=== PATIENT | female | born 1985 | race African-American/Black ===

== ENCOUNTER 2016-12-10 | Inpatient (IN) | payer MEDICAID, OTHER ==
[~2016-12-10] VITALS: Ht 167.6 cm; Wt 79.8 kg
[~2016-12-10] MED LIST: PREN-88 PO
[2016-12-10] MEDS ORDERED: CARBOPROST TROMETHAMINE 250 MCG/ML AMPUL IM PRN (03:00)
[2016-12-10] MEDS ORDERED: METHYLERGONOVINE MALEATE 0.2 MG/ML IM PRN (03:00)
[2016-12-10] MEDS ORDERED: MISOPROSTOL 100MCG TABLET VG SCH (03:00)
[2016-12-10] MEDS ORDERED: BUTORPHANOL TARTRATE 2 MG/ML VIAL IV PRN (03:00)
[2016-12-10] MEDS ORDERED: LIDOCAINE HCL 1% 20ML VIAL (Pyxis) INJ INFIL SCH (03:00)
[2016-12-10] MEDS ORDERED: NALOXONE HCL 0.4 MG/ML 1ML VIAL IM PRN (03:00)
[2016-12-10] MEDS: LACTATED RINGERS 1,000 ML IV SCH ×3 (04:50→11:27)
[2016-12-10 04:59] LABS: CLARITY URINE CLEAR (CLEAR); COLOR URINE DARK YELLOW (YELLOW); GLUCOSE URINE NEGATIVE (NEGATIVE); KETONES URINE TRACE (NEGATIVE); LEUKOCYTE ESTERASE URINE 1+ (NEGATIVE); NITRITE URINE NEGATIVE (NEGATIVE); OCCULT BLOOD URINE 2+ (NEGATIVE); PROTEIN URINE TRACE (NEGATIVE); SPECIFIC GRAVITY URINE 1.028 (1.005-1.030)
[2016-12-10 05:08] LABS: BASOPHILS % 0.3 % (0.0-2.0); EOSINOPHILS % 2.5 % (0.0-5.0); HEMATOCRIT. 30.3 % (36.0-48.0); HEMOGLOBIN. 10.2 g/dL (12.0-16.0); LYMPHOCYTES % 18.8 % (20.0-50.0); MEAN CORPUSCULAR HEMOGLOBIN 27.6 pg (28.0-32.0); MEAN CORPUSCULAR VOLUME 81.9 fL (81.0-99.0); MEAN PLATELET VOLUME 10.2 fl (7.4-10.4); MONOCYTES % 9.5 % (2.0-8.0); NEUTROPHILS % 68.9 % (40.0-76.0); PLATELET 197 x1000/uL (130-400); RED CELL DISTRIBUTION WIDTH 13.6 % (11.6-14.6)
[2016-12-10 05:08] LABS: *AMPHETAMINES SCREEN URINE NEGATIVE (NEGATIVE); *BARBITURATES SCREEN URINE NEGATIVE (NEGATIVE); *BENZODIAZEPINES SCREEN URINE NEGATIVE (NEGATIVE); *COCAINE SCREEN URINE NEGATIVE (NEGATIVE); CANNABINOID URINE SCREEN NEGATIVE (NEGATIVE); METHADONE URINE SCREEN NEGATIVE (NEGATIVE); OPIATES URINE SCREEN NEGATIVE (NEGATIVE); PHENCYCLIDINE URINE SCREEN NEGATIVE (NEGATIVE)
[2016-12-10] MEDS: DEXT 5%/LR + PITOCIN 20UNITS/L 1,000 ML IV SCH ×2 (05:10→14:10)
[2016-12-10 05:23] LABS: INR 0.9; PARTIAL THROMBOPLASTIN TIME 28.2 sec (24.0-34.0); PROTHROMBIN TIME 9.9 sec
[2016-12-10 07:54] LABS: HEPATITIS B SURFACE ANTIGEN NEGATIVE; RUBELLA IGG 50.3 IU/mL (4.99-10)
[2016-12-10] MEDS ORDERED: BUPIVACAINE HCL/PF 0.25% (2.5MG/ML) 10ML ONE (10:59)
[2016-12-10] MEDS ORDERED: FENTANYL CITRATE/PF 50MCG/ML 2ML VIAL ONE (10:59)
[2016-12-10] MEDS ORDERED: BUPIVACAINE HCL/NS/PF EPIDURAL 100 ML EP SCH (11:00)
[2016-12-10] MEDS ORDERED: DEXT 5%/LR + PITOCIN 20UNITS/L 1,000 ML IV SCH (12:57)
[2016-12-10] MEDS ORDERED: ACETAMINOPHEN WITH CODEINE 300/30MG TABLET PO PRN (13:00)
[2016-12-10] MEDS ORDERED: BENZOCAINE/LANOLIN/ALOE VERA SPRAY TOP PRN (13:00)
[2016-12-10] MEDS ORDERED: DIPHENHYDRAMINE 25MG CAPSULE PO PRN (13:00)
[2016-12-10] MEDS ORDERED: BISACODYL 10MG SUPP PR PRN (13:00)
[2016-12-10] MEDS ORDERED: GLYCERIN/WITCH HAZEL LEAF MEDICATED PAD TOP PRN (13:00)
[2016-12-10] MEDS ORDERED: TETANUS, DIPHTHERIA, PERTUSSIS VAC/PF 0.5ML (>7YR OLD) IM ONE (13:00)
[2016-12-10] MEDS ORDERED: HEMORRHOIDAL SUPP PR PRN (13:00)
[2016-12-10] MEDS: IBUPROFEN 400MG TABLET PO PRN ×2 (14:50→23:37)
[2016-12-10 16:00] VITALS: BP 101/65
[2016-12-10 16:15] VITALS: BP 111/54
[2016-12-10] MEDS: ACETAMINOPHEN WITH CODEINE 300/30MG TABLET PO PRN ×2 (16:44→23:36)
[2016-12-10] MEDS: DOCUSATE SODIUM 100MG CAPSULE PO SCH (21:13)
[2016-12-11 00:03] VITALS: BP 109/61
[2016-12-11] MEDS: ACETAMINOPHEN WITH CODEINE 300/30MG TABLET PO PRN ×2 (03:50→16:16)
[2016-12-11] MEDS: IBUPROFEN 400MG TABLET PO PRN ×2 (03:51→16:16)
[2016-12-11 07:07] LABS: BASOPHILS % 0.4 % (0.0-2.0); HEMATOCRIT. 30.7 % (36.0-48.0); MEAN CORPUSCULAR HEMOGLOBIN 27.2 pg (28.0-32.0); MEAN CORPUSCULAR VOLUME 83.2 fL (81.0-99.0); MEAN PLATELET VOLUME 10.6 fl (7.4-10.4); MONOCYTES % 7.7 % (2.0-8.0); NEUTROPHILS % 67.9 % (40.0-76.0); PLATELET 178 x1000/uL (130-400); RED BLOOD CELL COUNT 3.69 mill/uL (4.2-5.4); RED CELL DISTRIBUTION WIDTH 13.4 % (11.6-14.6)
[2016-12-11 08:29] VITALS: BP 103/63
[2016-12-11] MEDS: PRENATAL VIT/FE FUMARATE/FA TABLET PO SCH (13:35)
[2016-12-11] MEDS: FERROUS SULFATE 325MG TABLET PO SCH (13:35)
[2016-12-11 16:00] VITALS: BP 97/65
[2016-12-11] MEDS: DOCUSATE SODIUM 100MG CAPSULE PO SCH (21:23)
[2016-12-11 23:45] VITALS: BP 115/75
[2016-12-12] MEDS: ACETAMINOPHEN WITH CODEINE 300/30MG TABLET PO PRN (06:54)
[2016-12-12] MEDS: IBUPROFEN 400MG TABLET PO PRN (06:55)
[2016-12-12 08:42] VITALS: BP 114/72
[2016-12-12] MEDS: PRENATAL VIT/FE FUMARATE/FA TABLET PO SCH (10:19)
[2016-12-12] MEDS: FERROUS SULFATE 325MG TABLET PO SCH (10:19)
== END 2016-12-12 13:20 | disposition home or self-care (01) | DRG 560 ==
LOC: L&D → OBSVTOIN 12:46 → 7EST PP/OB 16:38
PROVIDERS: ADMIT Specialist; ATTEND Specialist
PROC: 3E0S3CZ (ICD-10-PCS; 2016-12-10)
PROC: 00HU33Z Insertion of Infusion Device into Spinal Canal, Percutaneous Approach (ICD-10-PCS; 2016-12-10)
PROC: 10E0XZZ Delivery of Products of Conception, External Approach (ICD-10-PCS; principal; 2016-12-10 12:46)
DX: O99.03 Anemia complicating the puerperium (principal); D64.9 Anemia, unspecified; Z88.0 Allergy status to penicillin; Z37.0 Single live birth; Z3A.39 39 weeks gestation of pregnancy
CPT/HCPCS: 36415; 80305; 81001; 85025; 85610; 85730; 86592; 86703; 86762; 86850; 86900; 87340; 90715; G0378; J0595; J2590; J3010; J3490; J7120; A4315

== ENCOUNTER 2019-01-03 14:07 | Observation (INO) | payer MEDICAID | END 2019-01-03 19:00 | disposition home or self-care (01) | LOC: 8 EST LDRP 14:07 → 8 EST A/PP 14:15 | PROVIDERS: ADMIT Specialist; ATTEND Specialist | DX: O62.9 Abnormality of forces of labor, unspecified (principal); O30.003 Twin pregnancy, unspecified number of placenta and unspecified number of amniotic sacs, third trimester; Z3A.34 34 weeks gestation of pregnancy | CPT/HCPCS: 76805; 76810; 76815; 76818; 99281; G0378 ==